=== PATIENT | female | born 1980 | race Caucasian/White ===

== ENCOUNTER 2017-08-23 14:43 | Emergency (ER) | payer MEDICARE ==
[~2017-08-23] VITALS: Ht 170.2 cm; Wt 90.7 kg
[2017-08-23 14:54] VITALS: BP 151/96
--- NOTE | 2017-08-23 14:58 | NUR ---
PT SENT TO LOBBY TO WAIT FOR A BED TO BE CLEANED OFF.
--- NOTE | 2017-08-23 15:02 | NUR ---
Patient ambulated to bed 6 with family. RN evaluating patient at bedside.
--- NOTE | 2017-08-23 15:05 | NUR ---
PATIENT PRESENTS TO ED WITH right hand pain s/p fall yesterday; hand caught in the toilet paper dispenser, hx bipolar . PATIENT STATES PAIN OF 10/10 AT THIS TIME; VSS; ER MD MADE AWARE OF PT STATUS.
--- NOTE | 2017-08-23 15:08 | NUR ---
ekg tech at bedside.
[2017-08-23] MEDS ORDERED: VANCOMYCIN 1,000 MG in DEXTROSE 5% 250 ML IV ONE (17:10)
[2017-08-23] MEDS ORDERED: HYDROcodone/APAP 10/325 MG 1 TAB TAB PO ONE (17:10)
[2017-08-23] MEDS ORDERED: PIPERACILLIN/TAZOBACTAM 3.375 GM in DEXTROSE 5% 50 ML IV ONE (17:10)
--- NOTE | 2017-08-23 17:16 | NUR ---
Patient being evaluated by DR SOUTH at bedside.
[2017-08-23] MEDS ORDERED: VANCOMYCIN 1,000 MG VIAL ONE (17:22)
[2017-08-23] MEDS ORDERED: PIPERACILLIN/TAZOBACTAM 3.375 GM VIAL IV ONE (17:22)
--- NOTE | 2017-08-23 17:43 | NUR ---
DR. MCFARLANE SAID OK TO HOLD PT'S IV ANTIBIOTIC AT THIS TIME DUE TO PT IS GOING TO TRANSFER TO ANOTHER HOSPITAL.
[2017-08-23 18:00] VITALS: BP 151/96
--- NOTE | 2017-08-23 18:00 | NUR ---
Patient discharged with v/s stable. Written and verbal after care instructions given and explained. PT INSTRUCTED TO GO TO [facility] FOR FURTHER CARE UNDER DR. ZHAO. Patient verbalized understanding. Ambulatory with steady gait. All questions addressed prior to discharge.
== END 2017-08-23 18:00 | disposition short-term general hospital (02) ==
LOC: MED 14:43
DX: S61.232A Puncture wound without foreign body of right middle finger without damage to nail, initial encounter (principal); M65.841 Other synovitis and tenosynovitis, right hand; Z88.1 Allergy status to other antibiotic agents; W22.8XXA Striking against or struck by other objects, initial encounter; Y93.89 Activity, other specified; Y99.8 Other external cause status; Y92.091 Bathroom in other non-institutional residence as the place of occurrence of the external cause
CPT/HCPCS: 73130; 90471; 90715; 99285; Q0092; J2543; J3370; J7060